=== PATIENT | female | born 1955 | race Caucasian/White ===

== ENCOUNTER 2019-06-19 15:23 | Emergency (ER) | payer MEDICARE, OTHER ==
--- NOTE | 2019-06-19 16:29 | EDM.PDOC ---
ED HPI GENERAL MEDICAL PROBLEM - General Stated Complaint: VAGINAL BLEEDING Time Seen by Provider: 06/19/19 15:45 Source of Information: Reports: Patient History Limitations: Reports: No Limitations - History of Present Illness INITIAL COMMENTS - FREE TEXT/NARRATIVE: 63-year-old female who reports she awoke Thursday morning (06/18/2019) and when she went to the bathroom she felt a fullness in her vagina and passed a large blood clot. Since that time she has had continued to have vaginal bleeding with passage of clots and has had to change her pad about every 2 hours. She has had no pain. She rates her pain as a 0/10. There is no abdominal or back pain. She has had no dysuria or hematuria. No fevers or chills. She has been postmenopausal now for about 10+ years. She has not had vaginal bleeding since then until now. She reports that this afternoon she "felt somewhat dizzy with standing and decided she needed to come in to be evaluated. She has been eating and drinking normally. There has been no nausea or vomiting. No trauma to the area. There was no inciting event. There are no other associated signs or symptoms. There are no other modifying factors. Onset: Other (Thursday night/Thursday morning.) Duration: Constant Location: Reports: Other (No pain. Just feels somewhat weak and lightheaded today.) Quality: Reports: Other (No pain) Severity: Moderate (Moderately heavy bleeding) Improves with: Reports: None Worsens with: Reports: None Context: Reports: Other (As above) Associated Symptoms: Reports: Weakness (Lightheadedness) Treatments CLINIQUE COUNTER MANAGER: Reports: Other (see below) - Related Data Allergies Allergy/AdvReac Type Severity Reaction Status Date / Time No Known Allergies Allergy Verified 06/19/19 16:08 Home Meds: Home Meds . [Unable to Verify Home Med List] 06/19/19 [History] Past Medical History Cardiovascular History: Reports: High Cholesterol, Hypertension Endocrine/Metabolic History: Reports: Diabetes, Type II (On insulin) - Past Surgical History Other Surgical History Comment: No previous surgeries. Social & Family History - Tobacco Use Smoking Status *Q: Never Smoker - Alcohol Use Alcohol Use History: No - Living Situation & Occupation Occupation: Retired (Middle high school history teacher) ED ROS GENERAL - Review of Systems Review Of Systems: See Below Constitutional: Reports: Weakness, Fatigue HEENT: Reports: No Symptoms Respiratory: Reports: No Symptoms Cardiovascular: Reports: No Symptoms Endocrine: Reports: No Symptoms GI/Abdominal: Reports: No Symptoms : Reports: Other (Vaginal bleeding). Denies: Dysuria, Hematuria Musculoskeletal: Reports: No Symptoms Skin: Reports: No Symptoms Neurological: Reports: Other (Lightheadedness with near syncope today) Hematologic/Lymphatic: Reports: No Symptoms Immunologic: Reports: No Symptoms ED EXAM, GENERAL - Physical Exam Exam: See Below Free Text/Narrative:: Patient did have orthostatic vital signs performed and started out with a blood pressure in the 120s but with standing after 1 minute, her blood pressure dropped to 74 systolic. She did not feel weak or dizzy with this. Exam Limited By: No Limitations General Appearance: Alert, WD/WN, No Apparent Distress Eye Exam: Bilateral Eye: EOMI, Normal Inspection, PERRL, Other (Sclera are anicteric) Ears: Normal External Exam, Hearing Grossly Normal Ear Exam: Bilateral Ear: Auricle Normal Nose: Normal Inspection, Normal Mucosa Throat/Mouth: Normal Inspection, Normal Lips, Normal Oropharynx, Normal Voice, No Airway Compromise Head: Atraumatic, Normocephalic Neck: Normal Inspection, Supple, Non-Tender, Full Range of Motion Respiratory/Chest: No Respiratory Distress, Lungs Clear, Normal Breath Sounds, No Accessory Muscle Use, Chest Non-Tender Cardiovascular: Normal Peripheral Pulses, Regular Rate, Rhythm, No JVD Peripheral Pulses: 2+: Radial (L), Radial (R), Dorsalis Pedis (L), Dorsalis Pedis (R) GI/Abdominal: Normal Bowel Sounds, Soft, Non-Tender, No Organomegaly, No Mass (Female) Exam: Normal External Exam, Normal Speculum Exam (Except there was some posterior vaginal.), Normal Bimanual Exam, Vaginal Bleeding, Other (The cervix appeared normal) Extremities: Normal Inspection, Normal Range of Motion, Non-Tender, No Pedal Edema, Normal Capillary Refill Neurological: Alert, Oriented, CN II-XII Intact, Normal Cognition, No Motor/ Sensory Deficits Skin Exam: Warm, Dry, Intact, Normal Color, No Rash Course - Vital Signs Last Recorded V/S: Last Vital Signs Temp 36.6 C 06/19/19 15:30 Pulse 73 06/19/19 17:40 Resp 16 06/19/19 17:40 BP 195/42 H 06/19/19 17:40 Pulse Ox 99 06/19/19 17:40 Orthostatic Blood Pressure [ 74/42 Standing] Orthostatic Blood Pressure [ 104/50 Sitting] Orthostatic Blood Pressure [ 99/28 Supine] - Orders/Labs/Meds Orders: Active Orders 24 hr Category Date Time Status Orthostatic Vital Signs [RC] ASDIRECTED Care 06/19/19 16:08 Active Peripheral IV Insertion Adult [OM.PC] Routine Oth 06/19/19 16:29 Ordered Labs: Laboratory Tests 06/19/19 06/19/19 06/19/19 Range/Units 16:25 16:25 16:25 WBC 7.5 (4.5-12.0) X10-3/uL RBC 2.68 L (3.23-5.20) x10(6)uL Hgb 7.3 L (11.5-15.5) g/dL Hct 22.7 L (30.0-51.3) % MCV 84.7 (80-96) fL MCH 27.2 L (27.7-33.6) pg MCHC 32.1 L (32.2-35.4) g/dL RDW 14.9 (11.5-15.5) % Plt Count 330 (125-369) X10(3)uL MPV 7.3 L (7.4-10.4) fL Neut % (Auto) 77.3 (46-82) % Lymph % (Auto) 13.6 (13-37) % [place] % (Auto) 8.1 (4-12) % Eos % (Auto) 1 (1.0-5.0) % Baso % (Auto) 1 (0-2) % Neut # (Auto) 5.9 (1.6-8.3) # Lymph # (Auto) 1.0 (0.6-5.0) # [place] # (Auto) 0.6 (0.0-1.3) # Eos # (Auto) 0.0 (0.0-0.8) # Baso # (Auto) 0.0 (0.0-0.2) # PT 9.9 (8.7-11.1) INR 1.02 (0.89-1.13) Sodium 140 (135-145) mmol/L Potassium 4.4 (3.5-5.3) mmol/L Chloride 102 (100-110) mmol/L Carbon Dioxide 27 (21-32) mmol/L BUN 23 H (7-18) mg/dL Creatinine 1.3 H (0.55-1.02) mg/dL Est Cr Clr Drug Dosing TNP Estimated GFR (MDRD) 41 L (>60) BUN/Creatinine Ratio 17.7 (9-20) Glucose 304 H (80-116) mg/dL Calcium 9.1 (8.6-10.2) mg/dL Total Bilirubin 0.3 (0.1-1.3) mg/dL AST 14 (5-25) IU/L ALT 24 (12-36) U/L Alkaline Phosphatase 84 (56-112) IU/L Total Protein 6.5 (6.0-8.0) g/dL Albumin 2.8 L (3.2-4.6) g/dL Globulin 3.7 g/dL Albumin/Globulin Ratio 0.8 Blood Type Gel Antibody Screen 06/19/19 Range/Units 16:25 WBC (4.5-12.0) X10-3/uL RBC (3.23-5.20) x10(6)uL Hgb (11.5-15.5) g/dL Hct (30.0-51.3) % MCV (80-96) fL MCH (27.7-33.6) pg MCHC (32.2-35.4) g/dL RDW (11.5-15.5) % Plt Count (125-369) X10(3)uL MPV (7.4-10.4) fL Neut % (Auto) (46-82) % Lymph % (Auto) (13-37) % [place] % (Auto) (4-12) % Eos % (Auto) (1.0-5.0) % Baso % (Auto) (0-2) % Neut # (Auto) (1.6-8.3) # Lymph # (Auto) (0.6-5.0) # [place] # (Auto) (0.0-1.3) # Eos # (Auto) (0.0-0.8) # Baso # (Auto) (0.0-0.2) # PT (8.7-11.1) INR (0.89-1.13) Sodium (135-145) mmol/L Potassium (3.5-5.3) mmol/L Chloride (100-110) mmol/L Carbon Dioxide (21-32) mmol/L BUN (7-18) mg/dL Creatinine (0.55-1.02) mg/dL Est Cr Clr Drug Dosing Estimated GFR (MDRD) (>60) BUN/Creatinine Ratio (9-20) Glucose (80-116) mg/dL Calcium (8.6-10.2) mg/dL Total Bilirubin (0.1-1.3) mg/dL AST (5-25) IU/L ALT (12-36) U/L Alkaline Phosphatase (56-112) IU/L Total Protein (6.0-8.0) g/dL Albumin (3.2-4.6) g/dL Globulin g/dL Albumin/Globulin Ratio Blood Type A NEGATIVE Gel Antibody Screen Negative Meds: Medications Discontinued Medications Generic Name Dose Route Start Last Admin Trade Name Freq PRN Reason Stop Dose Admin Sodium Chloride 1,000 mls @ 999 mls/hr 06/19/19 16:29 06/19/19 17:05 Normal Saline IV 06/19/19 17:29 999 mls/hr .BOLUS ONE Administration Sodium Chloride 1,000 mls @ 150 mls/hr 06/19/19 18:30 06/19/19 18:15 Normal Saline IV 150 mls/hr ASDIRECTED JULIEN Administration Sodium Chloride 10 ml 06/19/19 16:29 06/19/19 17:05 Saline Flush FLUSH 10 ml ASDIRECTED PRN Administration Keep Vein Open - Re-Assessments/Exams Free Text/Narrative Re-Assessment/Exam: 06/19/19 17:30: Patient's hemoglobin is 7.3. Her hematocrit is 22.7. Her creatinine is 1.3. She had pretty significant orthostatic changes in her blood pressure with a drop in her blood pressure to 73 systolic with standing. She has been vitally stable with no significant vaginal bleeding with her lying flat. However, with the patient's orthostatic hypotension, the heavy postmenopausal vaginal bleeding and the severe anemia secondary to blood loss the patient will need admission and she will need gynecology specially services. At this point, there are no beds available at [facility] and there are no gynecology specially services. Therefore the patient will need transfer to a facility with these services available. Discussed this with the patient and with her and they would prefer that I discussed her case with [facility] in [place]. 06/19/19 18:10: I discussed the patient's case with Dr. Ramos, neuro urologist at [facility] in [place], and he felt that the patient needed admission as well with blood transfusion today and probable ultrasound and D&C tomorrow. He referred me to discuss the patient's case with Dr. Patel, the ED physician at [facility] who would be accepting the patient. I discussed the patient's case with Dr. Patel and he has agreed to accept the patient in transfer. The patient will need to be transferred via ambulance for ongoing fluid resuscitation and hemodynamic monitoring. I discussed this with the patient and she is in agreement with this plan. Departure - Departure Time of Disposition: 19:10 Disposition: DC/Tfer to Acute Hospital 02 Condition: Fair (Guarded) Clinical Impression: Postmenopausal bleeding, Acute blood loss anemia, Sympathotonic orthostatic hypotension - Discharge Information Referrals: Zion Boles MD [Primary Care Provider] - Forms: ED Department Discharge - My Orders Last 24 Hours: My Active Orders 06/19/19 16:08 Orthostatic Vital Signs [RC] ASDIRECTED 06/19/19 16:29 Peripheral IV Insertion Adult [OM.PC] Routine - Assessment/Plan Last 24 Hours: My Active Orders 06/19/19 16:08 Orthostatic Vital Signs [RC] ASDIRECTED 06/19/19 16:29 Peripheral IV Insertion Adult [OM.PC] Routine
[2019-06-19] MEDS: Sodium Chloride 0.9% 1,000 ML IV ONE (17:05)
[2019-06-19] MEDS: Sodium Chloride 0.9% 10 ML Syringe FLUSH PRN (17:05)
[2019-06-19] MEDS: Sodium Chloride 0.9% 1,000 ML IV SCH (18:15)
== END 2019-06-19 19:10 ==
LOC: FB.ED 15:23
DX: N95.0 Postmenopausal bleeding (principal); D62 Acute posthemorrhagic anemia; I95.1 Orthostatic hypotension; I10 Essential (primary) hypertension; E11.9 Type 2 diabetes mellitus without complications
CPT/HCPCS: 36415; 80053; 85025; 85610; 86850; 86900; 86901; 96360; 96361; 99283; J7030